=== PATIENT | male | born 1995 | race Caucasian/White ===

== ENCOUNTER 2018-09-27 11:29 | Emergency (ER) | payer OTHER, SELFPAY ==
[2018-09-27 12:02] VITALS: BP 118/64; PULSE 64; RESP 14; TEMP 36.8; O2SAT 100; BMI 21.2
--- NOTE | 2018-09-27 13:22 | ED.WOUNDLAC ---
HPI - Wound/Laceration <OSCAR Goldberg - Last Filed: 09/27/18 21:56> General Chief Complaint: Wound/Laceration Stated Complaint: Wound reopened after stiches removed Time Seen by Provider: 09/27/18 12:59 Source: patient Mode of arrival: ambulatory Limitations: no limitations History of Present Illness HPI narrative: 22-year-old healthy male that is a nonsmoker here for complaint of a complications with laceration to his left little finger. He states that he obtained the laceration on the 14 of September with shafts knife at work. Sutures were placed on that day. Approximately 9 days later he had the sutures removed. Reports that the next day that the laceration opened up. He was seen by his primary care provider after this and was referred to hand surgeon. L&I states that he needed to go to the emergency room to have referral to Orthopedics. He denies any new trauma to the area. He denies any infection to the area he states that he is concerned that it may get infected. He denies any other concerns or complaints at this timeframe. Review of Systems <OSCAR Goldberg - Last Filed: 09/27/18 21:56> Constitutional Denies chills, Denies fever(s), Denies lethargy and Denies weakness Eyes Denies change in vision, Denies eye discharge, Denies irritation and Denies loss of vision ENT Ears, Nose, Mouth, and Throat: Denies change in voice, Denies neck pain and Denies sore throat Cardiovascular Denies chest pain, Denies irregular heart rhythm, Denies lightheadedness, Denies palpitations, Denies dyspnea, Denies dyspnea on exertion and Denies orthopnea Respiratory Denies cough, Denies dyspnea, Denies dyspnea on exertion and Denies wheezing Gastrointestinal Gastrointestinal: Denies abdominal pain, Denies change in bowel habits, Denies diarrhea, Denies nausea and Denies vomiting Genitourinary Denies hematuria, Denies flank pain, Denies urinary incontinence and Denies urinary urgency Musculoskeletal Denies neck pain Comments: Complications laceration to left little finger Integumentary/Breasts Denies pruritus, Denies erythema, Denies rash and Denies wounds Neurologic Denies confusion, Denies loss of vision and Denies weakness Psychiatric Denies anxiety, Denies confusion, Denies depression, Denies homicidal ideation and Denies suicidal ideation Endocrine Denies palpitations Allergic/Immunologic Denies wheezing Exam <OSCAR Goldberg - Last Filed: 09/27/18 21:56> Initial Vital Signs Initial Vital Signs: Vital Signs Temperature 98.3 F 09/27/18 12:02 Pulse Rate 64 09/27/18 12:02 Respiratory Rate 14 09/27/18 12:02 Blood Pressure 118/64 09/27/18 12:02 Pulse Oximetry 100 09/27/18 12:02 Const General: cooperative and well developed Nutritional Appearance: well nourished Orientation: alert, awake, oriented x3 and not confused HENMT Mouth: oral mucosae normal and moist mucous membranes Eyes Conjunctivae: conjunctivae normal Sclera: sclerae normal Pupils: PERRL EOM: EOM intact bilaterally Resp Effort & Inspection: normal respiratory effort, able to speak in complete sentences, no respiratory distress and no use of accessory muscles Auscultation: clear to auscultation bilaterally, no rales, no rhonchi and no wheezes Cardio Rate: regular rate Rhythm: regular rhythm Heart Sounds: no click, no gallops, no murmurs and no rubs Pulses: normal peripheral pulses Skin General: no rashes or lesions noted, No jaundice and No petechiae Neuro General: alert, oriented x3, gait normal and no focal motor deficits Speech: speech normal Extrem Other: 1.5 cm flap laceration to the distal left finger on the ulnar aspect alongside the nail bed. No signs of a infection is appreciated at this time. Distal cap refill is less than 2 sec. Full range of motion of the left finger. Decreased sensation to the very distal tip of the finger. Patient states that this is not new and has been there since the laceration happened. <Sonal Cr DO - Last Filed: 09/28/18 16:00> Initial Vital Signs Initial Vital Signs: Vital Signs Temperature 98.3 F 09/27/18 12:02 Pulse Rate 64 09/27/18 12:02 Respiratory Rate 14 09/27/18 12:02 Blood Pressure 118/64 09/27/18 12:02 Pulse Oximetry 100 09/27/18 12:02 Course <OSCAR Goldberg - Last Filed: 09/27/18 21:56> Vital Signs - 8 hr 09/27/18 12:02 Temperature 98.3 F Pulse Rate 64 Respiratory Rate 14 Blood Pressure 118/64 Pulse Oximetry 100 <Sonal Cr DO - Last Filed: 09/28/18 16:00> Vital Signs - 8 hr 09/27/18 12:02 Temperature 98.3 F Pulse Rate 64 Respiratory Rate 14 Blood Pressure 118/64 Pulse Oximetry 100 MDM - Wound/Laceration <Greyson VillarealOSCAR mijares - Last Filed: 09/27/18 21:56> [facility] Narrative Medical decision making narrative: Laceration to the distal left finger is dressed with bacitracin and a dressing and along with the is splint to protect the distal finger. He is referred to Orthopedics. Patient is to call the number and number provided to schedule follow-up appointment here in the next few days. Use splint as directed to protect the finger. [id number] Tylenol Motrin as needed for any discomfort. Follow up with primary care provider. Return emergency room for any worsening symptoms. Discharge Plan Departure Patient Disposition: Home Clinical Impression: Laceration of left little finger Qualifiers: Encounter type: sequela Damage to nail status: without damage Foreign body presence: without foreign body Qualified Code(s): S61.217S - Laceration without foreign body of left little finger without damage to nail, sequela Discharge Date/Time: 09/27/18 13:48 Interventions: ED Discharge Assessment Last Done: 09/27/18 13:48 Instructions: DI for Laceration Repair Activity Restrictions/Additional Instructions: Referral was placed Orthopedics call the number at number provided to schedule follow-up appointment here in the next few days for re-evaluation. Wound is dressed with antibiotic ointment and a dressing along with a splint to protect the distal finger use splint as directed. Dress wound twice daily with bacitracin dressing. Use [id number] Tylenol or Motrin as needed for any discomfort. Follow up with primary care provider. Follow up with Orthopedics. Return emergency room for worsening symptoms. Referrals: Lucina Juárez MD [Physician] - <Sonal Cr DO - Last Filed: 09/28/18 16:00> [facility] ED Attending Dinoature Attestation: I was immediately available in the department for consultation. Documentation has been reviewed. I agree with assessment and plan.
--- NOTE | 2018-09-27 13:49 | PC.NURSE ---
pt c/o left 5th finger laceration with a kitchen knife that has reopened. pt states he got sutures out 2 days ago. today lac reopened.
== END 2018-09-27 13:48 | disposition home or self-care (01) ==
PROVIDERS: Emergency Provider Nurse Practitioner Family
DX: S61.217S Laceration without foreign body of left little finger without damage to nail, sequela (principal)
CPT/HCPCS: 29130; 99282; 99283

== ENCOUNTER → 2021-02-20 13:56 | Outpatient (CLI) | payer OTHER, MEDICAID, SELFPAY ==
[2021-02-20 15:45] LABS: COVID19 -Nasal RAPID Negative (Negative)
== END ==
PROVIDERS: Referring Provider Physician Assistant; Visit Provider Physician Assistant
DX: Z20.822 Contact with and (suspected) exposure to COVID-19 (principal); J31.2 Chronic pharyngitis
CPT/HCPCS: 87070; 87635; 87880

== ENCOUNTER → 2021-06-25 14:41 | Outpatient (CLI) | payer OTHER, MEDICAID, SELFPAY ==
--- NOTE | 2021-06-25 14:47 | DI.RAD.S_ITS ---
PROCEDURE: XR KNEE RT 3V INDICATIONS: R knee injury X 1 WEEK TECHNIQUE: 3 views of the knee were acquired. COMPARISON: None. FINDINGS: Bones: No fractures or dislocations. No suspicious bony lesions. Soft tissues: No joint effusion. No suspicious soft tissue calcifications. IMPRESSION: Normal right knee Dictated by: Tal Carolina M.D. on 06/25/2021 at 14:16 Approved by: Tal Carolina M.D. on 06/25/2021 at 14:16
== END ==
PROVIDERS: Referring Provider Physician Assistant; Visit Provider Physician Assistant
DX: S89.91XA Unspecified injury of right lower leg, initial encounter (principal); X58.XXXA Exposure to other specified factors, initial encounter
CPT/HCPCS: 73562

== ENCOUNTER → 2022-01-11 12:38 | Outpatient (CLI) | payer OTHER, MEDICAID, SELFPAY ==
--- NOTE | 2022-01-11 12:40 | DI.RAD.S_ITS ---
PROCEDURE: XR CHEST 2V INDICATIONS: syncope, palpitations, bradycardia TECHNIQUE: 2 views of the chest were acquired. COMPARISON: None. FINDINGS: Surgical changes and devices: None. Lungs and pleura: Lungs are clear. No pleural effusions or pneumothorax. Mediastinum: Mediastinal contours are normal. Heart size is normal. Bones and chest wall: No suspicious bony abnormalities. Soft tissues appear unremarkable. IMPRESSION: No acute cardiopulmonary process demonstrated radiographically. Dictated by: Tani Parham M.D. on 01/11/2022 at 14:51 Approved by: Tani Parham M.D. on 01/11/2022 at 14:52
[2022-01-11 13:01] LABS: Add Manual Diff / Slide Review NO; Basophils Absolute Auto 0 /uL (0-100); Basophils Percent Auto 0.6 % (0-2); Eosinophils Absolute Auto 100 /uL (0-450); Eosinophils Percent Auto 1.1 % (2-4); Hematocrit 43.3 % (41-53); Hemoglobin 15.3 g/dL (13.5-17.5); Lymphocytes Absolute Auto 1600 /uL (1100-4500); Lymphocytes Percent Auto 31.9 % (25-40); Mean Corpuscular HGB Conc 35.4 % (30-36); Mean Corpuscular Hemoglobin 30.6 PG (26-34); Mean Corpuscular Volume 86.6 fL (80-100); Monocytes Absolute Auto 400 /uL (0-900); Monocytes Percent Auto 8.8 % (3-14); Neutrophils Absolute Auto 2800 /uL (1500-7000); Neutrophils Percent Auto 57.6 % (50-75); Platelet Count 223 X10^3/uL (150-400); Red Blood Cell Count 5.01 X10^6/uL (4.5-5.9); White Blood Cell Count 4.9 X10^3/uL (4.5-11.0)
[2022-01-11 13:15] LABS: Alanine Aminotransferase 15 IU/L (<50); Albumin 4.8 g/dL (3.5-5.0); Alkaline Phosphatase 62 U/L (38-126); Aspartate Aminotransferase 22 IU/L (17-59); BUN Creatinine Ratio 11.6 (6-22); Blood Urea Nitrogen 11 mg/dL (9-20); Calcium 9.3 mg/dL (8.4-10.2); Carbon Dioxide 31 mmol/L (22-32); Chloride 102 mmol/L (98-107); Estimated Glomerular Filt Rate > 60 mL/min (>60); Globulin 2.4 g/dL (1.7-4.1); Glucose 87 mg/dL (70-100); HEMOLYSIS < 15 (0-50); Potassium 4.3 mmol/L (3.4-5.1); Sodium 138 mmol/L (137-145); Total Protein 7.2 g/dL (6.3-8.2)
[2022-01-11 13:40] LABS: Erythrocyte Sedimentation Rate 1 MM/HR (0-15)
[2022-01-11 13:43] LABS: TSH w/ Reflex to FT4 0.87 uIU/mL (0.47-4.68)
[2022-01-12 14:20] LABS: Interpretation Negative (Negative)
== END ==
PROVIDERS: PCP Pediatrics; Referring Provider Pediatrics; Visit Provider Pediatrics
DX: R55 Syncope and collapse (principal); K21.9 Gastro-esophageal reflux disease without esophagitis; Z87.898 Personal history of other specified conditions; Z82.49 Family history of ischemic heart disease and other diseases of the circulatory system
CPT/HCPCS: 71046; 80053; 83013; 84443; 85025; 85651

== ENCOUNTER 2022-01-19 21:19 | Emergency (ER) | payer OTHER, MEDICAID, SELFPAY ==
[2022-01-19] VITALS (7 sets, daily range): BP systolic 109–117; BP diastolic 53–64; PULSE 68–111; RESP 19–32; TEMP 36.6; O2SAT 95–100; BMI 20.2
--- NOTE | 2022-01-19 21:32 | DI.RAD.S_ITS ---
PROCEDURE: XR CHEST 1V INDICATIONS: chest pain TECHNIQUE: One view of the chest was acquired. COMPARISON: [facility], CR, XR CHEST 2V, 01/11/2022, 12:27. FINDINGS: Surgical changes and devices: There is an electronic device projecting over the left hemithorax superiorly which is likely external. Lungs and pleura: Lungs are clear. No pleural effusions or pneumothorax. Mediastinum: Mediastinal contours appear normal. Heart size is normal. Bones and chest wall: No suspicious bony lesions. Overlying soft tissues appear unremarkable. IMPRESSION: 1. No acute cardiopulmonary disease. Dictated by: Isaias Gomez M.D. on 01/19/2022 at 23:34 Approved by: Isaias Gomez M.D. on 01/19/2022 at 23:35
--- NOTE | 2022-01-19 21:33 | ED.CHESTPAIN ---
HPI - Chest Pain General Chief Complaint: Chest Pain Stated Complaint: chest pain, dizzy, has a heart monitor on Time Seen by Provider: 01/19/22 21:20 Mode of arrival: Family Vehicle History of Present Illness HPI narrative: 26-year-old male daily smoker with history of GERD, anxiety and prior syncope with possible bradycardia presents with a chief complaint of 1-2 hours of sharp and stabbing anterior chest pain and rapid heart rate. He states that he was having a normal day and denies any new medications or dietary change. He is had no fever chills. He was driving in his car when he felt a sudden onset of anterior sharp and stabbing chest pain without obvious provocation or palliation. He denies any radiation. He denies any cough or hemoptysis. He is had no nausea or vomiting. He states that he feels like his heart is going to jump out of his chest and now he is feeling numb and tingling in both fingers and around his mouth. He denies any abdominal pain, diarrhea, constipation or urinary complaints. He denies any recent injury or trauma. He is had no long distance travel, history of blood clot or lower extremity pain, swelling or redness Related Data Previous Rx's Medication Instructions Recorded omeprazole 20 mg capsule,delayed 20 mg PO DAILY GERD #30 caps 01/11/22 release paroxetine HCl 20 mg tablet (Paxil) 20 mg PO DAILY #30 tabs 01/11/22 Allergies Allergy/AdvReac Type Severity Reaction Status Date / Time No Known Drug Allergies Allergy Unverified 01/19/22 21:31 Review of Systems Review of Systems Narrative: GENERAL: Denies chills, fatigue, malaise, fever, sweats. HEENT: Denies sinus pain, ear pain, sore throat, difficulty swallowing, dizziness. RESPIRATORY: Denies dyspnea, cough, wheezing, hemoptysis, sputum. CARDIOVASCULAR: See HPI GASTROINTESTINAL: Denies nausea, vomiting, abdominal pain, diarrhea, constipation, melena. : Denies dysuria, frequency, incontinence, hematuria, urinary retention. MUSCULOSKELETAL: denies weakness, joint pain, or bony pain SKIN: Denies rash, skin lesions, or other NEUROLOGIC: See HPI PSYCHIATRIC: No concerning psychosocial issues. 12 point review of systems is negative except for those stated above Patient History Medical History Depression Family history of premature ventricular contractions GERD (gastroesophageal reflux disease) History of bradycardia (Unknown) Near syncope Syncope, near Social History Smoking Status: Current every day smoker Tobacco: How many years used: 8 Smokeless tobacco user: other (Nicotine vape ) quit status: not considering quitting alcohol intake: current (1-2 ciders per week ) substance use type: marijuana (1-2 times per week ) Smoking Status: Current every day smoker tobacco type: vaping Substance Use Type: does not use Exam Narrative Exam Narrative: GENERAL: [26] year old patient appears stated age. Well-developed patient, in mild distress. Anxious, rapid shallow breathing HEAD: Atraumatic. Normocephalic. EYES: Pupils equal round and reactive. Extraocular motions intact. No scleral icterus. No injection or drainage. ENT: Nose without bleeding, purulent drainage. Throat without erythema, tonsillar hypertrophy or exudate. Airway patent. NECK: Trachea midline. Non tender CARDIOVASCULAR: Tachycardic but regular rhythm without murmurs, gallops, or rubs. RESPIRATORY: Rapid and shallow with clear sounds throughout GASTROINTESTINAL: Abdomen soft, non-tender, nondistended. EXTREMITIES: No edema or joint tenderness. BACK: Nontender without deformity or crepitance. No flank tenderness. NEURO: AOx3. SKIN: No rash or erythema of visible areas Initial Vital Signs Initial Vital Signs: Vital Signs Temperature 98 F 01/19/22 21:29 Pulse Rate 111 H 01/19/22 21:29 Respiratory Rate 28 H 01/19/22 21:29 Blood Pressure 117/64 01/19/22 21:29 Pulse Oximetry 100 01/19/22 21:29 Oxygen Delivery Method 01/19/22 21:29 Scores HEART Score Heart Score history: Slightly Suspicious Heart Score EKG: Normal Heart Score Age: < 45 years old Heart Score risk factors: No known risk factors Heart Score troponin: < or = to normal limit Heart Score Total: 0 Course Course Course Narrative: Patient is significantly improved over the course of the visit, vital signs stable with a heart rate down into the 70s now. Patient is ambulating through the department without difficulty. Advanced imaging shows no obvious large pulmonary embolism. Multiple causes of chest pain considered including CT, PE, pneumothorax, pneumonia, aortic dissection, and pleurisy. Patient reports no radiation, no diaphoresis, no provocation with exertion, and no vomiting. Heart score is 0, troponin x2 is negative. Pericarditis considered but thought unlikely given lack of classic history, physical, EKG findings or elevated inflammatory markers. Orders Ordered: ED Orders 01/19/22 21:27 EKG-12 Lead Stat 01/19/22 21:32 XR chest 1V Stat 01/19/22 21:43 CRP [C-Reactive Protein Quant] Stat Complete Blood Count AUTO DIFF Stat Comprehensive Metabolic Panel Stat D Dimer Stat ESR [Erythrocyte Sedimentation Rate] Stat Lipase Stat NT-proBNP (BNP-Adult 18+) Stat Troponin & CK Cardiac Panel Stat 01/19/22 22:12 CT angio chest PE protocol Stat 01/20/22 01:40 Troponin & CK Cardiac Panel Stat Discontinued Medications Sodium Chloride (Normal Saline 0.9%) 1,000 mls @ 150 mls/hr IV CONT SADAF Last Infusion: 01/20/22 02:34 Dose: 0 mls/hr Documented By: Admin: 01/19/22 21:55 Dose: 150 mls/hr Documented By: RAY Vital Signs Vital signs: Vital Signs - 8 hr 01/19/22 22:00 01/19/22 22:03 01/19/22 22:03 Pulse Rate 94 H 100 H Respiratory Rate 26 H 30 H Blood Pressure 112/53 L Pulse Oximetry 99 99 01/19/22 22:40 01/19/22 22:40 01/19/22 23:00 Pulse Rate 72 69 Respiratory Rate 19 32 H Blood Pressure 109/60 Pulse Oximetry 99 95 01/19/22 23:30 01/20/22 00:00 01/20/22 00:36 Pulse Rate 68 66 69 Respiratory Rate 21 21 Blood Pressure Pulse Oximetry 95 97 01/20/22 01:00 01/20/22 01:30 01/20/22 02:00 Pulse Rate 63 58 L 65 Respiratory Rate 26 H 18 31 H Blood Pressure Pulse Oximetry MDM - Chest Pain Lab Data Result diagrams: 01/19/22 21:43 01/19/22 21:43 Labs: Lab Results 01/19/22 01/19/22 01/19/22 Range/Units 21:43 21:43 21:43 WBC (4.5-11.0) X10^3/uL RBC (4.5-5.9) X10^6/uL Hgb (13.5-17.5) g/dL Hct (41-53) % MCV (80-100) fL MCH (26-34) PG MCHC (30-36) % RDW (11.6-14.8) % Plt Count (150-400) X10^3/uL Neut % (Auto) (50-75) % Lymph % (Auto) (25-40) % Rolette % (Auto) (3-14) % Eos % (Auto) (2-4) % Baso % (Auto) (0-2) % Neut # (Auto) (0371-6742) /uL Lymph # (Auto) (2918-4872) /uL Rolette # (Auto) (0-900) /uL Eos # (Auto) (0-450) /uL Baso # (Auto) (0-100) /uL RBC Morphology ESR 1 (0-15) MM/HR D-Dimer 573 H (<230) ng/mL Sodium (137-145) mmol/L Potassium (3.4-5.1) mmol/L Chloride (98-107) mmol/L Carbon Dioxide (22-32) mmol/L BUN (9-20) mg/dL Creatinine (0.66-1.25) mg/dL Estimated GFR (>60) mL/min BUN/Creatinine Ratio (6-22) Glucose (70-100) mg/dL Calcium (8.4-10.2) mg/dL Total Bilirubin (0.2-1.3) mg/dL AST (17-59) IU/L ALT (<50) IU/L Alkaline Phosphatase (38-126) U/L Total Creatine Kinase (55-170) U/L CK-MB (CK-2) (<2.37) ng/mL CK-MB (CK-2) Rel Index (1.5-5.0) % Troponin I (0.01-0.034) ng/mL C-Reactive Protein < 0.5 (<1.0) mg/dL NT-Pro-B Natriuret Pep (<125) pg/mL Total Protein (6.3-8.2) g/dL Albumin (3.5-5.0) g/dL Globulin (1.7-4.1) g/dL Albumin/Globulin Ratio (1.0-2.8) Lipase (23-300) U/L 01/19/22 01/19/22 01/20/22 Range/Units 21:43 21:43 01:40 WBC 10.0 (4.5-11.0) X10^3/uL RBC 5.38 (4.5-5.9) X10^6/uL Hgb 16.6 (13.5-17.5) g/dL Hct 46.4 (41-53) % MCV 86.3 (80-100) fL MCH 30.8 (26-34) PG MCHC 35.7 (30-36) % RDW 13.5 (11.6-14.8) % Plt Count 257 (150-400) X10^3/uL Neut % (Auto) 65.1 (50-75) % Lymph % (Auto) 23.7 L (25-40) % Rolette % (Auto) 7.6 (3-14) % Eos % (Auto) 0.8 L (2-4) % Baso % (Auto) 2.8 H (0-2) % Neut # (Auto) 6500 (0309-4637) /uL Lymph # (Auto) 2400 (8035-7088) /uL Rolette # (Auto) 800 (0-900) /uL Eos # (Auto) 100 (0-450) /uL Baso # (Auto) 300 H (0-100) /uL RBC Morphology Normal morphology ESR (0-15) MM/HR D-Dimer (<230) ng/mL Sodium 139 (137-145) mmol/L Potassium 3.4 (3.4-5.1) mmol/L Chloride 101 (98-107) mmol/L Carbon Dioxide 20 L (22-32) mmol/L BUN 13 (9-20) mg/dL Creatinine 1.05 (0.66-1.25) mg/dL Estimated GFR > 60 (>60) mL/min BUN/Creatinine Ratio 12.4 (6-22) Glucose 86 (70-100) mg/dL Calcium 10.0 (8.4-10.2) mg/dL Total Bilirubin 0.9 (0.2-1.3) mg/dL AST 32 (17-59) IU/L ALT 23 (<50) IU/L Alkaline Phosphatase 74 (38-126) U/L Total Creatine Kinase 146 128 (55-170) U/L CK-MB (CK-2) 0.50 0.42 (<2.37) ng/mL CK-MB (CK-2) Rel Index 0.3 L 0.3 L (1.5-5.0) % Troponin I < 0.012 < 0.012 (0.01-0.034) ng/mL C-Reactive Protein (<1.0) mg/dL NT-Pro-B Natriuret Pep 87 (<125) pg/mL Total Protein 8.3 H (6.3-8.2) g/dL Albumin 5.3 H (3.5-5.0) g/dL Globulin 3.0 (1.7-4.1) g/dL Albumin/Globulin Ratio 1.8 (1.0-2.8) Lipase 123 (23-300) U/L Imaging Data CT scan - chest: Radiologist's Impression: Marvin Lara David??26??M??1995 ? Allergy/Adv: No Known Drug Allergies (More??) Close Chest CTA (Signed) Isaias Gomez - 01/19/22 Chest X-Ray (Signed) Isaias Gomez - 01/19/22 Chest X-Ray (Signed) Tani Parham - 01/11/22 EKG Rpt. 01/11/22 Knee X-Ray (Signed) Tal Carolina - 06/25/21 [facility] [address] CT Scan Report Signed Patient: Marvin Lara MR#: [id number] : 1995 Acct:[id number] Age/Sex: 26 / M Date of Service: 01/19/22 Loc: ED Accession Number: [id number] ?? Procedure: CT angio chest PE protocol Ordering Provider: Jairon Ritter D.O. PROCEDURE:? CT ANGIO CHEST PE PROTOCOL ? INDICATIONS:? tachycardia, SOB, elevated dimer ? TECHNIQUE:? After the administration of intravenous contrast, 2 mm thick sections acquired from the pulmonary apices to the posterior costophrenic angles.? 3-dimensional maximum intensity projection (MIP) coronal and sagittal reformats were then acquired through the thorax.? For radiation dose reduction, the following was used:? automated exposure control, adjustment of mA and/or kV according to patient size.? ? COMPARISON:? None. ? FINDINGS:? Image quality:? Excellent.? ? Pulmonary arteries:? There is suboptimal opacification of the pulmonary arteries with nondiagnostic evaluation in the segmental and subsegmental branches.? Pulmonary arteries demonstrate no intraluminal filling defects to suggest central pulmonary embolism in the main or lobar branches.? ? Lower Neck: No lymphadenopathy by size criteria. Thyroid:? Visualized thyroid demonstrates no discrete nodules. Axillae: No lymphadenopathy by size criteria. Chest Wall:? Unremarkable.? Bones: Visualized osseous structures demonstrate no suspicious lesions. ? Lungs and Airways:? No acute consolidation.? No suspicious pulmonary nodules. The trachea and central airways are patent. Pleura: No pneumothorax or pleural effusions.? ? Heart: Heart size is normal.? No pericardial effusion. Thoracic Vessels: The aorta and pulmonary arteries are normal in size.? Mediastinum and Martina: No lymphadenopathy by size criteria.? There is residual thymus within the anterior mediastinum. Esophagus: No wall thickening. No hiatal hernia. Abdomen:? Visualized upper abdominal solid organs appear normal in the early arterial phase of enhancement.? ? IMPRESSION:? ? 1. Suboptimal opacification of the pulmonary arteries, with nondiagnostic evaluation of the segmental and subsegmental branches.? No evidence of central pulmonary embolism in the main or lobar pulmonary arteries. ? 2. No acute airspace consolidation.? ? ? Dictated by: Isaias Gomez M.D. on 01/19/2022 at 23:17 ? ? Approved by: Isaias Gomez M.D. on 01/19/2022 at 23:20 ? [facility] Narrative Medical decision making narrative: Close Chest CTA (Signed) Isaias Gomez - 01/19/22 Chest X-Ray (Signed) Isaias Gomez - 01/19/22 Chest X-Ray (Signed) Tani Parham - 01/11/22 EKG Rpt. 01/11/22 Knee X-Ray (Signed) Tal Carolina - 06/25/21 [facility]?[address] [address] [address] Scan Report Signed Patient: Marvin Lara MR#: [id number] : 1995 Acct:[id number] Age/Sex: 26 / M Date of Service: 01/19/22 Loc: ED Accession Number: [id number] ?? Procedure: CT angio chest PE protocol Ordering Provider: Jairon Ritter D.O. PROCEDURE:? CT ANGIO CHEST PE PROTOCOL ? INDICATIONS:? tachycardia, SOB, elevated dimer ? TECHNIQUE:? After the administration of intravenous contrast, 2 mm thick sections acquired from the pulmonary apices to the posterior costophrenic angles.? 3-dimensional maximum intensity projection (MIP) coronal and sagittal reformats were then acquired through the thorax.? For radiation dose reduction, the following was used:? automated exposure control, adjustment of mA and/or kV according to patient size.? ? COMPARISON:? None. ? FINDINGS:? Image quality:? Excellent.? ? Pulmonary arteries:? There is suboptimal opacification of the pulmonary arteries with nondiagnostic evaluation in the segmental and subsegmental branches.? Pulmonary arteries demonstrate no intraluminal filling defects to suggest central pulmonary embolism in the main or lobar branches.? ? Lower Neck: No lymphadenopathy by size criteria. Thyroid:? Visualized thyroid demonstrates no discrete nodules. Axillae: No lymphadenopathy by size criteria. Chest Wall:? Unremarkable.? Bones: Visualized osseous structures demonstrate no suspicious lesions. ? Lungs and Airways:? No acute consolidation.? No suspicious pulmonary nodules. The trachea and central airways are patent. Pleura: No pneumothorax or pleural effusions.? ? Heart: Heart size is normal.? No pericardial effusion. Thoracic Vessels: The aorta and pulmonary arteries are normal in size.? Mediastinum and Martina: No lymphadenopathy by size criteria.? There is residual thymus within the anterior mediastinum. Esophagus: No wall thickening. No hiatal hernia. Abdomen:? Visualized upper abdominal solid organs appear normal in the early arterial phase of enhancement.? ? IMPRESSION:? ? 1. Suboptimal opacification of the pulmonary arteries, with nondiagnostic evaluation of the segmental and subsegmental branches.? No evidence of central pulmonary embolism in the main or lobar pulmonary arteries. ? 2. No acute airspace consolidation.? ? ? Dictated by: Isaias Gomez M.D. on 01/19/2022 at 23:17 ? ? Approved by: Isaias Gmoez M.D. on 01/19/2022 at 23:20 ? Discharge Plan Departure Patient Disposition: Home Clinical Impression: Atypical chest pain Instructions: DI for Atypical Chest Pain Activity Restrictions/Additional Instructions: *You have been diagnosed with [atypical chest pain. As we discussed your history and physical exam are reassuring as are EKG, labs and imaging. There is no evidence of heart attack, significant arrhythmia, pneumonia, blood clot or other diagnosis that would require a specific or immediate intervention] *What to do: *Please continue to take your regular medications as directed. [ ] New medication prescriptions sent to your pharmacy: [ ] [ ] New medication written as a paper prescription [x ] No new medications given *Please follow up with your primary care provider next week as planned t. Let them know you were seen in the Emergency Department We will electronically transmit a record of today's note if your PCP is in our system *Return to Emergency Department if you should have any new, worsening or concerning symptoms, such as [fever greater than 101 F, shaking chills, worsening pain, persistent vomiting or other bothersome symptoms] Prescriptions: No Action omeprazole 20 mg capsule,delayed release(DR/EC) 20 mg PO DAILY Qty: 30 3RF paroxetine HCl [Paxil] 20 mg tablet 20 mg PO DAILY Qty: 30 3RF Rx Instructions: 1/2 pill once daily for 1 week then increase to one pill daily and maintain there for the next few months Referrals: Neftali Frost MD [Primary Care Provider] - Visit Report Forms: Patient Portal/API
[2022-01-19] MEDS: SODIUM CHLORIDE 0.9% 1,000 ML 150 ML IV (21:55)
[2022-01-19 22:00] LABS: Basophils Absolute Auto 300 /uL (0-100); Basophils Percent Auto 2.8 % (0-2); Eosinophils Absolute Auto 100 /uL (0-450); Eosinophils Percent Auto 0.8 % (2-4); Hematocrit 46.4 % (41-53); Hemoglobin 16.6 g/dL (13.5-17.5); Lymphocytes Absolute Auto 2400 /uL (1100-4500); Lymphocytes Percent Auto 23.7 % (25-40); Mean Corpuscular HGB Conc 35.7 % (30-36); Mean Corpuscular Hemoglobin 30.8 PG (26-34); Mean Corpuscular Volume 86.3 fL (80-100); Monocytes Absolute Auto 800 /uL (0-900); Monocytes Percent Auto 7.6 % (3-14); Neutrophils Absolute Auto 6500 /uL (1500-7000); Neutrophils Percent Auto 65.1 % (50-75); Platelet Count 257 X10^3/uL (150-400); Red Blood Cell Count 5.38 X10^6/uL (4.5-5.9); Red Cell Distribution Width 13.5 % (11.6-14.8)
[2022-01-19 22:01] LABS: Add Manual Diff / Slide Review SLIDE REVIEW
[2022-01-19 22:03] LABS: D Dimer 573 ng/mL (<230)
[2022-01-19 22:04] LABS: Alanine Aminotransferase 23 IU/L (<50); Albumin 5.3 g/dL (3.5-5.0); Albumin Globulin Ratio 1.8 (1.0-2.8); Alkaline Phosphatase 74 U/L (38-126); Aspartate Aminotransferase 32 IU/L (17-59); BUN Creatinine Ratio 12.4 (6-22); Bilirubin Total 0.9 mg/dL (0.2-1.3); Blood Urea Nitrogen 13 mg/dL (9-20); Carbon Dioxide 20 mmol/L (22-32); Chloride 101 mmol/L (98-107); Creatine Kinase 146 U/L (55-170); Estimated Glomerular Filt Rate > 60 mL/min (>60); Glucose 86 mg/dL (70-100); HEMOLYSIS 34 (0-50); Lipase 123 U/L (23-300); Potassium 3.4 mmol/L (3.4-5.1); Sodium 139 mmol/L (137-145); Total Protein 8.3 g/dL (6.3-8.2)
--- NOTE | 2022-01-19 22:12 | DI.CT.S_ITS ---
PROCEDURE: CT ANGIO CHEST PE PROTOCOL INDICATIONS: tachycardia, SOB, elevated dimer TECHNIQUE: After the administration of intravenous contrast, 2 mm thick sections acquired from the pulmonary apices to the posterior costophrenic angles. 3-dimensional maximum intensity projection (MIP) coronal and sagittal reformats were then acquired through the thorax. For radiation dose reduction, the following was used: automated exposure control, adjustment of mA and/or kV according to patient size. COMPARISON: None. FINDINGS: Image quality: Excellent. Pulmonary arteries: There is suboptimal opacification of the pulmonary arteries with nondiagnostic evaluation in the segmental and subsegmental branches. Pulmonary arteries demonstrate no intraluminal filling defects to suggest central pulmonary embolism in the main or lobar branches. Lower Neck: No lymphadenopathy by size criteria. Thyroid: Visualized thyroid demonstrates no discrete nodules. Axillae: No lymphadenopathy by size criteria. Chest Wall: Unremarkable. Bones: Visualized osseous structures demonstrate no suspicious lesions. Lungs and Airways: No acute consolidation. No suspicious pulmonary nodules. The trachea and central airways are patent. Pleura: No pneumothorax or pleural effusions. Heart: Heart size is normal. No pericardial effusion. Thoracic Vessels: The aorta and pulmonary arteries are normal in size. Mediastinum and Martina: No lymphadenopathy by size criteria. There is residual thymus within the anterior mediastinum. Esophagus: No wall thickening. No hiatal hernia. Abdomen: Visualized upper abdominal solid organs appear normal in the early arterial phase of enhancement. IMPRESSION: 1. Suboptimal opacification of the pulmonary arteries, with nondiagnostic evaluation of the segmental and subsegmental branches. No evidence of central pulmonary embolism in the main or lobar pulmonary arteries. 2. No acute airspace consolidation. Dictated by: Isaias Gomez M.D. on 01/19/2022 at 23:17 Approved by: Isaias Gomez M.D. on 01/19/2022 at 23:20
[2022-01-19 22:16] LABS: NT-proBNP (BNP-Adult 18+) 87 pg/mL (<125); Troponin I < 0.012 ng/mL (0.01-0.034)
[2022-01-19 22:20] LABS: CKMB % Relative Index 0.3 % (1.5-5.0)
[2022-01-19 22:21] LABS: Erythrocyte Sedimentation Rate 1 MM/HR (0-15)
[2022-01-19 22:51] LABS: C-Reactive Protein Quant < 0.5 mg/dL (<1.0)
[2022-01-19 23:58] LABS: RBC Morphology Normal Morphology
[2022-01-20] VITALS: PULSE 66; RESP 21; O2SAT 97
[2022-01-20 00:36] VITALS: PULSE 69; RESP 21
[2022-01-20 01:00] VITALS: PULSE 63; RESP 26
[2022-01-20 01:30] VITALS: PULSE 58; RESP 18
[2022-01-20 01:54] LABS: Creatine Kinase 128 U/L (55-170)
[2022-01-20 02:00] VITALS: PULSE 65; RESP 31
[2022-01-20 02:07] LABS: Troponin I < 0.012 ng/mL (0.01-0.034)
[2022-01-20 02:10] LABS: CKMB % Relative Index 0.3 % (1.5-5.0); Creatine Kinase MB 0.42 ng/mL (<2.37)
== END 2022-01-20 02:36 | disposition home or self-care (01) ==
PROVIDERS: Emergency Provider Emergency Medicine; PCP Pediatrics
DX: R07.89 Other chest pain (principal); R00.0 Tachycardia, unspecified
CPT/HCPCS: 36415; 71045; 71275; 80053; 82550; 82553; 83690; 83880; 84484; 85025; 85379; 85651; 86140; 93005; 93010; 99284; Q9967

== ENCOUNTER → 2022-06-22 11:31 | Outpatient (CLI) | payer OTHER, MEDICAID, SELFPAY ==
[2022-06-22 11:43] LABS: UR Morphine/Opiate cutoff 300 Negative (Negative); Ur Creatinine Normal (Normal); Ur Specific Gravity Normal (Normal); Urine Amphetamines Negative (Negative); Urine Barbiturates Negative (Negative); Urine Benzodiazepines Negative (Negative); Urine Cocaine Negative (Negative); Urine MDMA Negative (Negative); Urine Methadone Negative (Negative); Urine Methamphetamines Negative (Negative); Urine Oxycodone Negative (Negative); Urine Phencyclidine Negative (Negative); Urine Tetrahydrocannabinol Negative (Negative); Urine Tricyclic Antidepressant Negative (Negative); Urine pH Normal (Normal)
== END ==
PROVIDERS: PCP Family Medicine; Visit Provider Family Medicine
DX: F90.0 Attention-deficit hyperactivity disorder, predominantly inattentive type (principal)
CPT/HCPCS: 80305

== ENCOUNTER → 2023-12-26 15:59 | Outpatient (CLI) | payer OTHER, MEDICAID, SELFPAY ==
[2023-12-26 16:49] LABS: Ur Creatinine Normal (Normal); Ur Specific Gravity Normal (Normal)
[2023-12-26 16:50] LABS: Urine Amphetamines Positive (Negative); Urine Barbiturates Negative (Negative); Urine Benzodiazepines Negative (Negative); Urine Cocaine Negative (Negative); Urine MDMA Negative (Negative); Urine Methadone Negative (Negative); Urine Methamphetamines Negative (Negative); Urine Opiates Negative (Negative); Urine Oxycodone Negative (Negative); Urine Phencyclidine Negative (Negative); Urine THC Negative (Negative); Urine Tricyclic Antidepressant Negative (Negative); Urine pH Normal (Normal)
== END ==
PROVIDERS: PCP Family Medicine; Referring Provider Family Medicine; Visit Provider Family Medicine
DX: F90.9 Attention-deficit hyperactivity disorder, unspecified type (principal)
CPT/HCPCS: 80305

== ENCOUNTER → 2024-03-01 15:58 | Outpatient (CLI) | payer OTHER, MEDICAID, SELFPAY ==
[2024-03-01 16:20] LABS: Hematocrit 44.4 % (41-53); Hemoglobin 15.7 g/dL (13.5-17.5); Mean Corpuscular HGB Conc 35.3 % (30-36); Mean Corpuscular Hemoglobin 30.8 PG (26-34); Mean Corpuscular Volume 87.3 fL (80-100); Platelet Count 202 X10^3/uL (150-400); Red Blood Cell Count 5.09 X10^6/uL (4.5-5.9); Red Cell Distribution Width 13.5 % (11.6-14.8); White Blood Cell Count 4.7 X10^3/uL (4.5-11.0)
[2024-03-01 16:47] LABS: Alanine Aminotransferase 26 IU/L (<50); Albumin 4.7 g/dL (3.5-5.0); Albumin Globulin Ratio 1.7 (1.0-2.8); Alkaline Phosphatase 52 U/L (38-126); Aspartate Aminotransferase 30 IU/L (17-59); BUN Creatinine Ratio 11.8 (6-22); Bilirubin Total 1.1 mg/dL (0.2-1.3); Blood Urea Nitrogen 14 mg/dL (9-20); Calcium 9.5 mg/dL (8.4-10.2); Carbon Dioxide 29 mmol/L (22-32); Chloride 101 mmol/L (98-107); Estimated Glomerular Filt Rate > 60 mL/min (>60); Globulin 2.8 g/dL (1.7-4.1); Glucose 94 mg/dL (70-100); HEMOLYSIS < 15 (0-50); Sodium 137 mmol/L (137-145); Total Protein 7.5 g/dL (6.3-8.2)
[2024-03-01 17:15] LABS: TSH w/ Reflex to FT4 0.79 uIU/mL (0.47-4.68)
== END ==
PROVIDERS: PCP Family Medicine; Referring Provider Family Medicine; Visit Provider Family Medicine
DX: Z11.4 Encounter for screening for human immunodeficiency virus [HIV] (principal); Z11.59 Encounter for screening for other viral diseases; R00.1 Bradycardia, unspecified; I95.1 Orthostatic hypotension
CPT/HCPCS: 36415; 80053; 84443; 85027; 86803; 87389